=== PATIENT | male | born 1980 ===

== ENCOUNTER 2022-01-17 09:52 | Emergency (ER) | payer BC, OTHER ==
[~2022-01-17] VITALS: Ht 172.7 cm; Wt 88.4 kg
[~2022-01-17 09:52] MED LIST: HYDR-3714 PO; HYDR12.570 PO; LISI10TA2 PO; LISI1TAB10 PO
--- NOTE | 2022-01-17 10:33 | ED Cardiac General ---
History of Present Illness General Chief Complaint: Cardiac/General Problems Stated Complaint: ELEV BP Nursing Triage Note: PT AMB TO RM 5 WITH . PT STATED THAT HE WAS SEEN AT [facility] ON WEDNESDAY FOR AN ANNUAL APPT. [facility] REFERED PT TO ER FOR HIGH BLOOD PRESSURE AND BRADYCARIDA. Source: patient, family, old records Exam Limitations: no limitations History of Present Illness Date Seen by Provider: Jan 17, 2022 Time Seen by Provider: 10:20 Initial Comments This 41-year-old gentleman presents to the emergency room for evaluation of bradycardia and hypertension. He is asymptomatic, denying any chest pain, shortness of breath, lightheadedness, edema, unusual fatigue, etc. He reports a long-term history of bradycardia with normal resting heart rates in the 50s and 60s. He presented to the [facility] clinic on January 13 for a routine checkup and renewal of his blood pressure medication. He was noted to be hypertensive and have a heart rate in the 30s with sinus bradycardia on EKG at that time. He was referred to the ER and did not receive a renewal of his lisinopril/HCTZ 20/25. He did not present to the ER that day but presents to the ER this morning because he took his last dose of remaining lisinopril/HCTZ yesterday morning at 0900. He states he used to be on blood pressure medication at this dose twice daily, but that was reduced a few years ago to a once daily dose. He reports he has had mild hypertension with systolic blood pressures up to the 150s on just the once daily dose. He has no known cardiac problems other than the chronic bradycardia and hypertension. 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 Allergies and Home Medications Allergies Coded Allergies: No Known Drug Allergies (Unverified , 07/05/14) Patient Home Medication List Home Medication List Reviewed: Yes Hctz/Lisinopril (Lisinopril-Hctz 20-25MG Tab) 1 Tab Tablet, 1 TAB PO DAILY, (Reported) Entered as Reported by: CLEMENCIA BALDERAS on 07/06/14 0844 Hydrocodone Bit/Acetaminophen (Hydrocodone-Apap 5/325 Tab) 1 Tab Tablet, 1-2 TAB PO Q4H PRN for PAIN Prescribed by: ELI CONTRERAS on 07/06/14 1527 Lisinopril/Hydrochlorothiazide (Lisinopril-Hctz 20-25 mg Tab) 20 Mg-25 Mg Table t, 1 EACH PO BID Prescribed by: MYNOR RAMIREZ on 01/17/22 1313 Review of Systems Review of Systems Constitutional: no symptoms reported EENTM: No Symptoms Reported Respiratory: No Symptoms Reported Cardiovascular: See HPI Gastrointestinal: No Symptoms Reported Genitourinary: No Symptoms Reported Musculoskeletal: no symptoms reported Skin: no symptoms reported Psychiatric/Neurological: No Symptoms Reported Endocrine: No Symptoms Reported Past Vsrjgib-Plfusf-Yikdvr Hx Patient Social History Tobacco Use?: No Use of E-Cig and/or Vaping dev: No Substance use?: No Alcohol Use?: No Pt feels they are or have been: Unable to obtain Immunizations Up To Date Tetanus Booster (TDap): Unknown Influenza Vaccine Up-to-Date: No; Not Current Past Medical History Surgeries: Yes Appendectomy Respiratory: No Cardiac: Yes (Chronic bradycardia) Hypertension Neurological: No Reproductive Disorders: No Sexually Transmitted Disease: No HIV/AIDS: No Gastrointestinal: No Musculoskeletal: No Endocrine: No HEENT: No Cancer: No Psychosocial: No Adverse Reaction/Blood Tranf: No Family Medical History Diabetes mellitus 19 MOTHER Diabetes Physical Exam Vital Signs Vital Signs - First Documented 01/17/22 10:07 Temp 36.5 Pulse 44 Resp 24 B/P (MAP) 197/59 (105) Pulse Ox 97 O2 Delivery Room Air Capillary Refill : Less Than 3 Seconds Height, Weight, BMI Height: 5'10.00" Weight: 205lbs. oz. 92.863146sf; 29.00 BMI Method: General Appearance: No Apparent Distress, WD/WN HEENT: PERRL/EOMI, Normal ENT Inspection Neck: Normal Inspection; No JVD Respiratory: Lungs Clear, Normal Breath Sounds, No Accessory Muscle Use Cardiovascular: Regular Rate, Rhythm, No Edema, No Murmur Gastrointestinal: Normal Bowel Sounds, Non Tender, Soft; No Distended Extremity: Normal Inspection, No Pedal Edema Neurologic/Psychiatric: Alert, Oriented x3, No Motor/Sensory Deficits, Normal Mood/Affect Skin: Normal Color, Warm/Dry Progress/Results/Core Measures Results/Orders Lab Results Laboratory Tests Test 01/17/22 10:19 Range/Units White Blood Count 5.3 4.3-11.0 10^3/uL Red Blood Count 4.36 4.30-5.52 10^6/uL Hemoglobin 13.4 13.3-17.7 g/dL Hematocrit 39 L 40-54 % Mean Corpuscular Volume 89 80-99 fL Mean Corpuscular Hemoglobin 31 25-34 pg Mean Corpuscular Hemoglobin Concent 35 32-36 g/dL Red Cell Distribution Width 12.1 10.0-14.5 % Platelet Count 129 L 130-400 10^3/uL Mean Platelet Volume 11.4 9.0-12.2 fL Immature Granulocyte % (Auto) 0 % Neutrophils (%) (Auto) 53 42-75 % Lymphocytes (%) (Auto) 33 12-44 % Monocytes (%) (Auto) 11 0-12 % Eosinophils (%) (Auto) 2 0-10 % Basophils (%) (Auto) 1 0-10 % Neutrophils # (Auto) 2.8 1.8-7.8 10^3/uL Lymphocytes # (Auto) 1.8 1.0-4.0 10^3/uL Monocytes # (Auto) 0.6 0.0-1.0 10^3/uL Eosinophils # (Auto) 0.1 0.0-0.3 10^3/uL Basophils # (Auto) 0.0 0.0-0.1 10^3/uL Immature Granulocyte # (Auto) 0.0 0.0-0.1 10^3/uL Percent Immature Platelet Fraction 8.0 H 0.0-7.6 % Sodium Level 139 135-145 MMOL/L Potassium Level 3.4 L 3.6-5.0 MMOL/L Chloride Level 103 98-107 MMOL/L Carbon Dioxide Level 24 21-32 MMOL/L Anion Gap 12 5-14 MMOL/L Blood Urea Nitrogen 21 H 7-18 MG/DL Creatinine 0.81 0.60-1.30 MG/DL Estimat Glomerular Filtration Rate 113 BUN/Creatinine Ratio 26 Glucose Level 101 70-105 MG/DL Calcium Level 9.2 8.5-10.1 MG/DL Magnesium Level 2.1 1.6-2.4 MG/DL TSH [place] Testing 0.80 0.35-4.94 UIU/ML My Orders Orders - MYNOR RIDLEY MD Ekg Tracing (01/17/22 10:15) Ed Iv/Invasive Line Start (01/17/22 10:43) Basic Metabolic Panel (01/17/22 10:43) Cbc With Automated Diff (01/17/22 10:43) Magnesium (01/17/22 10:43) Thyroid Analyzer (01/17/22 10:43) Lisinopril Tablet (Zestril Tablet) (01/17/22 10:45) Hydrochlorothiazide Cap/Tablet (Hctz Cap (01/17/22 10:45) Medications Given in ED Current Medications Medications Dose Ordered Sig/Hina Route Start Time Stop Time Status Last Admin Dose Admin Hydrochlorothiazide 25 mg ONCE ONCE PO 01/17/22 10:45 01/17/22 10:46 DC 01/17/22 11:00 25 MG Lisinopril 20 mg ONCE ONCE PO 01/17/22 10:45 01/17/22 10:46 DC 01/17/22 11:00 20 MG Vital Signs/I&O 01/17/22 01/17/22 10:07 13:41 Temp 36.5 Pulse 44 42 Resp 24 B/P (MAP) 197/59 (105) 186/78 Pulse Ox 97 97 O2 Delivery Room Air Room Air Blood Pressure Mean: 105 Progress Progress Note #1: Time: 10:52 Progress Note Patient has been exhibiting sinus bradycardia here in the ER. He is asymptomatic at this time. He is hypertensive and is past due for his lisinopril/hydrochlorothiazide. We will give him his morning dose while we obtain some basic labs. Progress Note #2: Progress Note Labs were unremarkable. Patient remained hypertensive despite receiving his usual dose of lisinopril with hydrochlorothiazide. He reports he was much better controlled when he used this same dose twice daily. He request to go back on twice daily dosing. I am agreeable to this based on his presentation and his labs. A 1 month prescription was provided for him. I did place a courtesy phone consult to Dr. Palacios as follow-up in the clinic is anticipated. He had no other requests for evaluation or care at this time. See discharge instructions for further discussion. Heart rate remained in the 40s throughout most of the ER visit. I did see 1 brief heart rate of 38. Patient maintained t hroughout the visit that he had no symptoms related to bradycardia. Initial ECG Impression Date: Jan 17, 2022 Initial ECG Impression Time: 10:20 Initial ECG Rate: 43 Initial ECG Rhythm: S.Dennis Initial ECG Impression: Sinus Bradycardia Comment Sinus bradycardia with no ST elevation or depression. Automated read notes moderate intraventricular conduction delay. No axis deviation. Departure Impression Primary Impression: Essential hypertension Additional Impression: Sinus bradycardia Disposition: 01 HOME, SELF-CARE Condition: Stable Departure-Patient Inst. Referrals: [facility] [place] ([place]) Primary Care Physician FEDERICO PALACIOS MD [facility] Patient Instructions: Bradycardia, High Blood Pressure (DC) Add. Discharge Instructions: In regard to your high blood pressure, you may increase lisinopril/HCTZ to 20/25 twice daily. Also focus on some lifestyle modifications that should improve your blood pressure such as frequent exercise, weight loss, and a low-salt diet. Return to your primary care provider in 1 to 2 weeks for a blood pressure check and renewal of your prescription. Your slow heart rate does not require emergent treatment at this time. However, if you develop symptoms related to slow heart rate such as lightheadedness, significant fatigue, shortness of breath, chest pain, etc., you should return to the emergency room. At some point in the very near future you should seek consultation with a cardi ologist. Dr. Palacios's contact information is below for your convenience. You may call his office directly or arrange for a referral through your primary care office. Call your doctor with questions or concerns. All discharge instructions reviewed with patient and/or family. Voiced understanding. Scripts Lisinopril/Hydrochlorothiazide (Lisinopril-Hctz 20-25 mg Tab) 20 Mg-25 Mg Tablet 1 EACH PO BID, #60 TAB Prov: MYNOR RIDLEY MD 01/17/22 Copy Copies To 1: FEDERICO PALACIOS MD [facility] Copies To 2: [facility]/MYNOR EDE MD Jan 17, 2022 10:33
[2022-01-17] MEDS ORDERED: lisINopril 20 MG (PRINIVIL) TABLET PO ONE (10:45)
[2022-01-17 10:50] LABS: BASOPHILS % (AUTO) 1 % (0-10); EOSINOPHILS # (AUTO) 0.1 10^3/uL (0.0-0.3); EOSINOPHILS % (AUTO) 2 % (0-10); MEAN CORPUSCULAR VOLUME 89 fL (80-99); NEUTROPHILS % (AUTO) 53 % (42-75); PLATELET COUNT 129 10^3/uL (130-400)
[2022-01-17 10:51] LABS: HEMATOCRIT 39 % (40-54); HEMOGLOBIN 13.4 g/dL (13.3-17.7); LYMPHOCYTES # (AUTO) 1.8 10^3/uL (1.0-4.0); LYMPHOCYTES % (AUTO) 33 % (12-44); MEAN CORPUSCULAR HEMOGLOBIN 31 pg (25-34); MEAN CORPUSCULAR HGB CONC 35 g/dL (32-36); MEAN PLATELET VOLUME 11.4 fL (9.0-12.2); MONOCYTES # (AUTO) 0.6 10^3/uL (0.0-1.0); MONOCYTES % (AUTO) 11 % (0-12); NEUTROPHILS # (AUTO) 2.8 10^3/uL (1.8-7.8); WHITE BLOOD COUNT 5.3 10^3/uL (4.3-11.0)
[2022-01-17 10:55] LABS: POTASSIUM 3.4 MMOL/L (3.6-5.0)
[2022-01-17 10:56] LABS: CALCIUM 9.2 MG/DL (8.5-10.1)
[2022-01-17 11:01] LABS: CREATININE SERUM 0.81 MG/DL (0.60-1.30)
[2022-01-17 11:03] LABS: MAGNESIUM 2.1 MG/DL (1.6-2.4)
[2022-01-17 11:23] LABS: TSH (THYROID ANALYZER) 0.8 UIU/ML (0.35-4.94)
[2022-01-17] MEDS ORDERED: LISI1TAB48 PO (13:13)
[2022-01-17 13:41] VITALS: BP 186/78
== END 2022-01-17 13:41 | disposition home or self-care (01) ==
LOC: EDUNIT# 09:52 → ER 09:56
DX: I10 Essential (primary) hypertension (principal); R00.1 Bradycardia, unspecified; Z79.899 Other long term (current) drug therapy; Z28.310 Unvaccinated for COVID-19
CPT/HCPCS: 36415; 80048; 83735; 84443; 85025; 93005